=== PATIENT | female | born 1965 | race Caucasian/White ===

== ENCOUNTER 2021-09-18 10:38 | Emergency (ER) | payer OTHER ==
[~2021-09-18] VITALS: Ht 165.1 cm; Wt 70.0 kg
[2021-09-18 13:42] VITALS: BP 137/82
== END 2021-09-18 13:42 | disposition home or self-care (01) ==
LOC: ER 10:44
DX: F10.10 Alcohol abuse, uncomplicated (principal)
CPT/HCPCS: 99283